=== PATIENT | female | born 1940 | race Caucasian/White ===

== ENCOUNTER 2022-06-23 10:18 | Day surgery (SDC) | payer MEDICARE, OTHER, SELFPAY ==
[2022-06-23 10:30] VITALS: BP 171/94; PULSE 79; RESP 18; TEMP 36.7; O2SAT 96
[2022-06-23] MEDS: Tropicam./Phenyleph. (1/2.5%) 5 ML BTL OS ×3 (10:33→10:52)
--- NOTE | 2022-06-23 11:11 | W.ANESPRE ---
General Info Date of Service Date Performed: 06/23/22 Height: 5 ft 4 in Weight: 75.9 kg Body Mass Index (BMI): 28.7 Surgical Procedure: Operation Date: 06/23/22 13:40 Proposed Procedure Side Surgeon p Cataract Extraction with IOL Implant Left Meqluiades Weldon MD Meds Allergies and Home Medications Allergies Allergy/AdvReac Type Severity Reaction Status Date / Time levofloxacin [From Levaquin] Allergy Severe Anaphylaxis Verified 06/23/22 10:35 pepper (genus Capsicum) Allergy Severe Anaphylaxis Verified 06/23/22 10:35 cefpodoxime Allergy Intermediate hives, Verified 06/23/22 10:35 wheal latex Allergy Intermediate Hives Verified 06/23/22 10:35 pneumococcal vaccine Allergy Intermediate Skin Rash Verified 06/23/22 10:35 Sulfa (Sulfonamide Allergy Intermediate severe Verified 06/23/22 10:35 Antibiotics) stomach problems vaccine adjuvant system, Allergy Intermediate Skin Rash Verified 06/23/22 10:35 AS01B liposomal [From Shingrix ()] varicella-zoster virus Allergy Intermediate Skin Rash Verified 06/23/22 10:35 glycoprotein E, recombinant [From DogSpot (PF)] Home Medication Medication Instructions Recorded calcium carbonate 600 mg calcium 600 mg PO DAILY 06/22/22 (1,500 mg) tablet (Calcium) cetirizine 10 mg capsule (Zyrtec) 10 mg PO DAILY PRN 06/22/22 flecainide 50 mg tablet 50 mg PO DAILY 06/22/22 fluticasone fur. 100 mcg-umeclid 1 inh inhalation DAILY 06/22/22 62.5 mcg-vilant 25 mcg inhalat.powder (Trelegy Ellipta) furosemide 20 mg tablet 20 mg PO DAILY 06/22/22 ipratropium 0.5 mg-albuterol 3 mg 3 ml inhalation QID 06/22/22 (2.5 mg base)/3 mL nebulization soln metoprolol tartrate 25 mg tablet 25 mg PO BID 06/22/22 olopatadine 0.2 % eye drops drp ophthalmic (eye) 06/22/22 potassium chloride 10 mEq 10 meq PO DAILY 06/22/22 tablet,extended release rivaroxaban 20 mg tablet (Xarelto) 20 mg PO DAILY 06/22/22 tiotropium bromide 1.25 2 puff inhalation DAILY 06/22/22 mcg/actuation mist for inhalation (Spiriva Respimat) vitamin B complex-folic acid ER 1 tab PO DAILY 06/22/22 400 mcg tablet,extended release Current Visit Medications: Current Medications Generic Name Dose Route Start Last Admin Trade Name Freq PRN Reason Stop Dose Admin Acetaminophen 1,000 mg 06/23/22 06:00 Acetaminophen 500 Mg Tab PO Q4H PRN PRN Miscellaneous Medication 0 ml 06/23/22 06:00 06/23/22 10:52 Tropicam./Phenyleph. (1/2.5%) 5 Ml Btl OS 1 drp DIRECTED MATI Administration Polymyxin/Trimethoprim Sulfate 10 ml 06/23/22 09:00 Polymyxin B/Trimethoprim Ophth Soln 10 Ml Btl OS 06/30/22 08:59 DIRECTED MATI Prednisolone Acetate 5 ml 06/23/22 09:00 Prednisolone 1% 5 Ml Btl OS 06/30/22 08:59 DIRECTED MATI Tetracaine HCl 0 ml 06/23/22 06:00 Tetracaine 0.5% 4 Ml Btl OS DIRECTED MATI PFSH Active Problems Active Problems: Problem Status Onset Code Cortical cataract of right eye H26.9 Nuclear sclerotic cataract of left eye H25.12 Medical History Medical History Atrial fibrillation Paroxysmal AFib Bronchiectasis Cataract Chronic hypoxemic respiratory failure Chronic pain COPD (chronic obstructive pulmonary disease) Cough Dysphagia GERD (gastroesophageal reflux disease) History of malignant neoplasm Hypertension Pneumonia with intubation during hospitalization. 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 Chronic O2 use. Surgical History Surgical History History of esophagogastroduodenoscopy (EGD) History of partial hysterectomy Tobacco Smoking/Tobacco Use Status: Former Tobacco Use Alcohol Alcohol Intake: never Substance Use Substance use: Never Substance use type: does not use Vital Signs and Lab Results Vital Signs Most Recent Vital Signs in EMR: Most Recent Vital Signs Temp Pulse Resp BP Pulse Ox 36.7 C 79 18 171/94 H 96 06/23/22 10:30 06/23/22 10:30 06/23/22 10:30 06/23/22 10:30 06/23/22 10:30 Lab Results Blood Type / Crossmatch: No Data to Display Complete Blood Count: No Data to Display Complete Metabolic Panel: No Data to Display Liver Function Panel: No Data to Display Coagulation Panel: No Data to Display Cardiac Panel: No Data to Display Arterial Blood Gas: No Data to Display Venous Blood Gas: No Data to Display Pancreas Panel: No Data to Display Thyroid Panel: No Data to Display Infectious Disease: No Data to Display Blood Cultures: No Data to Display Toxicology Panel: No Data to Display Anesthesia Assessment and Plan Anesthesia History Personal History: No History of Anesthesia Complications Family History: No Family History of Anesthesia Complications Exercise Tolerance Exercise Tolerance: Metabolic Equivalents<4 Pertinent Negatives Pertinent Negatives: No Symptoms of GERD, No Major Cardiovascular Symptoms or Complaints and No History of CVA/TIA Cardiac & Pulmonary Exam Cardiac Exam: Normal S1/S2 Heart Sounds Pulmonary Exam: Clear Bilateral Breath Sounds Implantable Cardiac Device Does patient have a Pacemaker or an ICD?: No Airway Exam Known Difficult Airway: No Mallampati Class: 1 Mouth Opening: Normal (> 3cm) Thyromental Distance: Greater than 3 cm Neck Range of Motion: Full ROM Neck Circumference: Normal Teeth Condition: Removable Dentures/Plates Upper ASA Classification ASA Score: ASA 4 Emergency Case?: No NPO Status NPO Status: NPO Clears >2 hours, Solids >8 hours Anesthesia Plan Resuscitation Status: Full Code Anesthesia Technique: MAC Anesthesia Airway Planned: Natural Airway Monitors Used: Standard Monitors
[2022-06-23 11:13] VITALS: BMI 28.7
[2022-06-23] MEDS: Povidone-Iodine Ophth 30 ML BTL (11:43)
[2022-06-23] MEDS: Tetracaine 0.5% 4 ML BTL OS (11:44)
[2022-06-23] MEDS: Lidocaine 2% Jelly 6 ML SYR (11:44)
[2022-06-23] MEDS: Balanced Salt Soln.-PLUS 500 ML BAG (11:52)
[2022-06-23] MEDS: Duovisc Viscoelastic System EACH 1 EACH (11:53)
[2022-06-23] MEDS: Trypan Blue 0.06% 0.5 ML SYR (12:00)
[2022-06-23] MEDS: Polymyxin B/Trimethoprim Ophth Soln 10 ML BTL OS (12:06)
[2022-06-23 12:13] VITALS: BP 208/92; PULSE 86; RESP 16; TEMP 36.6; O2SAT 98
--- NOTE | 2022-06-23 12:15 | W.PM.DSUDISC ---
Date of service: 06/23/22 Time of Service: 12:15 Discharge Plan Disposition Patient Disposition: HOME Condition: Good Discharge Details Reason For Visit: Cataract Attending Provider: Melquiades Weldon Primary Care Provider: Hernando Gleason Home Meds and New Rx's Prescriptions: No Action potassium chloride 10 mEq Tablet Extended Release 10 meq PO DAILY flecainide 50 mg Tablet 50 mg PO DAILY furosemide 20 mg Tablet 20 mg PO DAILY metoprolol tartrate 25 mg Tablet 25 mg PO BID vitamin B complex-folic acid [B100 Complex-Folic Acid] 400 mcg Tablet Extended Release 1 tab PO DAILY Xarelto 20 mg Tablet 20 mg PO DAILY Rx Instructions: must administer with evening meal ipratropium-albuterol 0.5 mg-3 mg(2.5 mg base)/3 mL Solution For Nebulization 3 ml INHALATION QID calcium carbonate [Calcium 600] 600 mg calcium (1,500 mg) Tablet 600 mg PO DAILY olopatadine [Pataday] 0.2 % Drops OPHTHALMIC (EYE) Zyrtec 10 mg Capsule 10 mg PO DAILY PRN Spiriva Respimat 1.25 mcg/actuation Mist 2 puff INHALATION DAILY Trelegy Ellipta 100-62.5-25 mcg Blister With Device 1 inh INHALATION DAILY Discharge Instructions Stand Alone Forms: Post-op Topical Cataract, Santa Mack (DSU) Discharge Orders Discharge Orders: Discharge Order (Routine); Ordered 06/23/22 Ordered By: Melquiades Weldon DS: Diagnosis Discharge Diagnosis (1) Nuclear sclerotic cataract of left eye: Status: Resolved (2) Cortical cataract of left eye: Status: Resolved (3) Posterior subcapsular age-related cataract of left eye: Status: Resolved
--- NOTE | 2022-06-23 12:17 | ROE_ITS ---
Date of service: 06/23/22 Time of Service: 12:17 Operative Note Operative Note DATE OF PROCEDURE: 06/23/22 PRE-OP DIAGNOSIS: Nuclear/cortical/posterior subcapsular cataract, left eye Poor red reflex, left eye secondary to cataract POST-OP DIAGNOSIS: same PROCEDURE: Cataract extraction using phacoemulsification with intraocular lens implant, left eye, using capsular staining with Vision Blue SURGEON: Melquiades Weldon ANESTHESIA TYPE: Local By Surgeon and MAC Refer to Anesthesia Record COMPLICATIONS: None Patient was transported to: same day Patient's condition: stable Implants: Jesus Alberto and Jesus Alberto / [employer] Tecnis [id number] Indications: Progressive decreased vision due to cataract, left eye, with poor red reflex Procedure Description: CATARACT SURGERY OPERATIVE REPORT PREOPERATIVE DIAGNOSIS: 1. Nuclear/cortical/posterior subcapsular cataract, left eye 2. Poor red reflex secondary to #1 POSTOPERATIVE DIAGNOSIS: Same OPERATION: 1. Cataract extraction using phacoemulsification with posterior chamber intraocular lens implant, left eye. 2. Capsular staining with Vision Blue IOL: IOL Insurance Verification Specialist/Model: Jesus Alberto & Jesus Alberto / CASI Tecnis [id number] IOL Power: + 23.5 diopters IOL Serial Number: [id number] Optic Diameter: 6.0 mm Haptic/Overall Diameter: 13.0 mm PHACO INFO: Jayson [employer]ion Vision System with OZil and Active Fluidics Cumulative Dispersed Energy (CDE): 12.11 seconds SURGEON: Melquiades Weldon MD, BERENICE ANESTHESIA: Monitored A [facility] (MAC), with local sub-tenon's anesthetic infiltration COMPLICATIONS: None SPECIMENS: None INDICATIONS FOR PROCEDURE: The patient is an 81-year-old lady with history of diminished visual acuity in her left eye secondary to the development of nuclear/cortical/posterior subcapsular cataract in the left eye. She is significantly symptomatic that she desires cataract surgery attempt to improve and maximize her vision. The option of cataract surgery was offered to the patient and she wished to proceed. PROCEDURE: The correct surgical eye was identified and marked as the left eye and the pupil was dilated in the preoperative area using mydriatics and cycloplegics. The dilated pupil size was 7.0 mm. The patient elected to proceed without oral sedation. The patient was brought to the operating room where cardiopulmonary monitoring was instituted and surgical time-out was performed, confirming the correct operative eye and IOL power. Positioning was challenging due to patient factors. Topical anesthesia was administered and ophthalmic povidone-iodine 5% was instilled into the conjunctival fornices. Lidocaine gel was applied to the cornea and the marco-ocular area was prepped with Betadine 10% solution and draped in the usual sterile fashion for intraocular surgery, including an aperture drape. A Tegaderm transparent film dressing was cut in half and used to cover the lashes and lid margins. Care was taken to sequester the lashes and lid margins under the Tegaderm dressing. A lid speculum was placed between the lids of the operative eye and the Jayson LuxOR Revalia operating microscope was maneuvered into position. Lorie scissors were then used to make a conjunctival buttonhole approximately 6mm posterior to the limbus in the inferonasal quadrant. Blunt dissection was carried out to expose bare sclera, and a blunt-tipped sub-tenon?s anesthesia cannula was introduced and passed posteriorly along the globe where non- preserved plain lidocaine was injected into posterior sub-Tenon?s space. A sideport knife was used to make a paracentesis port superiorly/superiortemporally. Intraocular phenylephrine/lidocaine was injected int the anterior chamber.. Air was then injected into the anterior chamber, followed by Vision Blue, which was painted over the anterior capsule and then irrigated out using BSS. The anterior chamber was filled with viscoelastic. A keratome knife was used to create a 2-plane near clear corneal tunnel extending approximately 2 mm into clear cornea temporally. A flap was raised on the anterior capsule and capsulorhexis forceps were used to complete a continuous curvilinear capsulorhexis of 5.0 mm. Balanced salt solution was then used to perform cortical cleaving hydrodissection and nuclear hydrodelineation until the lens could be freely rotated within the capsular bag. The lens nucleus was then disassembled and removed within the capsular bag and iris plane using phacoemulsification. Residual cortical material was removed using the 45-degree angled silicone I/A tip with 0.3mm port. The posterior capsule was carefully polished to remove as much residual lens epithelial cells as safely possible. The capsular bag was then inflated and the anterior chamber deepened with viscoelastic. The lens implant described above was inserted into the capsular bag using the CASI Pl atinum Injector. A Kuglen hook was used to dial the IOL into position. Residual viscoelastic was then removed first from posterior to the IOL, then from the anterior chamber using the I/A handpiece. The lens implant was noted to center nicely within the capsular bag. The incisions were stromally hydrated, and the anterior chamber was reformed using BSS. Then 0.5cc of moxifloxacin 1.0mg/ml were injected into the capsular bag and anterior chamber. The incisions were checked with a Weck spear and found to be secure. Several drops of ophthalmic povidone-iodine 5% were then applied to the eye followed by two drops of Imprimis combination prednisolone/moxifloxacin/nepafenac solution. The drapes were removed and a clear plastic protective eye shield was placed over the eye. The patient was then returned to Same Day Surgery in stable condition.
--- NOTE | 2022-06-23 12:39 | W.ANESPOSTOP ---
Postoperative Evaluation Date, Time and Location Date Performed: 06/23/22 Time Performed: 12:20 Patient Location: Day Surgery Unit Vital Signs Most Recent Imported Vital Signs: Most Recent Vital Signs Temp Pulse Resp BP Pulse Ox 36.6 C 86 16 208/92 H 98 06/23/22 12:13 06/23/22 12:13 06/23/22 12:13 06/23/22 12:13 06/23/22 12:13 Pain Score Most Recent Pain Score: Most Recent Pain Score Pain Level 0 06/23/22 12:13 Assessment Mental Status: Awake (Alert & Oriented to Patient Baseline) Airway and Respiratory Function: Patent airway with normal (patient baseline) respiratory exam Cardiovascular Function: Hemodynamically Stable Hydration Status: Adequately Hydrated Nausea & Vomiting: No Nausea or Vomiting Pain: Pt. Denies Any Pain Peripheral Nerve Block: Patient did not receive a nerve block
[2022-06-23 12:54] VITALS: BP 168/83; PULSE 82; TEMP 36.2; O2SAT 97
== END 2022-06-23 13:08 | disposition home or self-care (01) ==
PROVIDERS: PCP Family Medicine; Visit Provider Ophthalmology
PROC: (CPT 66982; principal; 2022-06-23 13:30)
DX: H25.042 Posterior subcapsular polar age-related cataract, left eye (principal); H26.8 Other specified cataract
CPT/HCPCS: 66982; V2632

== ENCOUNTER 2022-07-07 06:16 | Day surgery (SDC) | payer MEDICARE, OTHER, SELFPAY ==
[2022-07-07] MEDS: Tropicam./Phenyleph. (1/2.5%) 5 ML BTL OD ×3 (06:35→06:52)
[2022-07-07 06:46] VITALS: BP 173/85; PULSE 75; RESP 20; TEMP 37; O2SAT 95
--- NOTE | 2022-07-07 06:52 | ANES.PREOP_ITS ---
General Info Date of Service Date Performed: 07/07/22 Height: 5 ft 4.5 in Weight: 73.482 kg Body Mass Index (BMI): 27.3 Surgical Procedure: Operation Date: 07/07/22 07:40 Proposed Procedure Side Surgeon p Cataract Extraction with IOL Implant Right Melquiades Weldon MD Meds Allergies and Home Medications Allergies Allergy/AdvReac Type Severity Reaction Status Date / Time levofloxacin [From Levaquin] Allergy Severe Anaphylaxis Verified 07/07/22 06:39 pepper (genus Capsicum) Allergy Severe Anaphylaxis Verified 07/07/22 06:39 cefpodoxime Allergy Intermediate hives, Verified 07/07/22 06:39 wheal latex Allergy Intermediate Hives Verified 07/07/22 06:39 pneumococcal vaccine Allergy Intermediate Skin Rash Verified 07/07/22 06:39 Sulfa (Sulfonamide Allergy Intermediate severe Verified 07/07/22 06:39 Antibiotics) stomach problems vaccine adjuvant system, Allergy Intermediate Skin Rash Verified 07/07/22 06:39 AS01B liposomal [From Simple Tithe ()] varicella-zoster virus Allergy Intermediate Skin Rash Verified 07/07/22 06:39 glycoprotein E, recombinant [From Simple Tithe (PF)] Home Medication Medication Instructions Recorded calcium carbonate 600 mg calcium 600 mg PO DAILY 06/22/22 (1,500 mg) tablet (Calcium) cetirizine 10 mg capsule (Zyrtec) 10 mg PO HS 06/22/22 flecainide 50 mg tablet 50 mg PO DAILY 06/22/22 furosemide 20 mg tablet 20 mg PO DAILY 06/22/22 ipratropium 0.5 mg-albuterol 3 mg 3 ml inhalation QID 06/22/22 (2.5 mg base)/3 mL nebulization soln metoprolol tartrate 25 mg tablet 25 mg PO BID 06/22/22 olopatadine 0.2 % eye drops 1 drp ophthalmic (eye) DAILY 06/22/22 potassium chloride 10 mEq 10 meq PO HS 06/22/22 tablet,extended release rivaroxaban 20 mg tablet (Xarelto) 20 mg PO DAILY 06/22/22 tiotropium bromide 1.25 2 puff inhalation DAILY 06/22/22 mcg/actuation mist for inhalation (Spiriva Respimat) vitamin B complex-folic acid ER 1 tab PO DAILY 06/22/22 400 mcg tablet,extended release Current Visit Medications: Current Medications Generic Name Dose Route Start Last Admin Trade Name Freq PRN Reason Stop Dose Admin Acetaminophen 1,000 mg 07/07/22 06:00 Acetaminophen 500 Mg Tab PO Q4H PRN PRN Miscellaneous Medication 0 ml 07/07/22 06:00 07/07/22 06:43 Tropicam./Phenyleph. (1/2.5%) 5 Ml Btl OD 1 drp DIRECTED MATI Administration Tetracaine HCl 0 ml 07/07/22 06:00 Tetracaine 0.5% 4 Ml Btl OD DIRECTED MATI PFSH Active Problems Active Problems: Problem Status Onset Code Nuclear sclerotic cataract of left eye H25.12 Cortical cataract of right eye H26.9 Cortical cataract of left eye H26.9 Posterior subcapsular age-related cataract of left eye H25.042 Nuclear sclerotic cataract of right eye H25.11 Medical History Medical History Atrial fibrillation Paroxysmal AFib Bronchiectasis Cataract Chronic hypoxemic respiratory failure Chronic pain COPD (chronic obstructive pulmonary disease) Cough Dysphagia GERD (gastroesophageal reflux disease) History of malignant neoplasm Hypertension Pneumonia with intubation during hospitalization. 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 Surgical History Surgical History (Updated 07/07/22 @ 06:38 by Nicole Shannon) History of esophagogastroduodenoscopy (EGD) History of partial hysterectomy Hx of cataract extraction Tobacco Smoking/Tobacco Use Status: Former Tobacco Use Alcohol Alcohol Intake: never Substance Use Substance use: Never Substance use type: does not use Vital Signs and Lab Results Vital Signs Most Recent Vital Signs in EMR: Temp Pulse Resp BP Pulse Ox 37 C 75 20 173/85 H 95 07/07/22 06:46 07/07/22 06:46 07/07/22 06:46 07/07/22 06:46 07/07/22 06:46 Lab Results Blood Type / Crossmatch: No Data to Display Complete Blood Count: No Data to Display Complete Metabolic Panel: No Data to Display Liver Function Panel: No Data to Display Coagulation Panel: No Data to Display Cardiac Panel: No Data to Display Arterial Blood Gas: No Data to Display Venous Blood Gas: No Data to Display Pancreas Panel: No Data to Display Thyroid Panel: No Data to Display Infectious Disease: No Data to Display Blood Cultures: No Data to Display Toxicology Panel: No Data to Display Anesthesia Assessment and Plan Anesthesia History Personal History: No History of Anesthesia Complications Family History: No Family History of Anesthesia Complications Exercise Tolerance Exercise Tolerance: Metabolic Equivalents<4 Pertinent Negatives Pertinent Negatives: No Symptoms of GERD Cardiac & Pulmonary Exam Cardiac Exam: Normal S1/S2 Heart Sounds Pulmonary Exam: Clear Bilateral Breath Sounds (Distant) Implantable Cardiac Device Does patient have a Pacemaker or an ICD?: No Airway Exam Known Difficult Airway: No Mallampati Class: 1 Mouth Opening: Normal (> 3cm) Thyromental Distance: Greater than 3 cm Neck Range of Motion: Full ROM Neck Circumference: Normal Teeth Condition: Removable Dentures/Plates Upper ASA Classification ASA Score: ASA 3 Emergency Case?: No NPO Status NPO Status: NPO Clears >2 hours, Solids >8 hours Anesthesia Plan Resuscitation Status: Full Code Anesthesia Technique: MAC Anesthesia Airway Planned: Natural Airway Monitors Used: Standard Monitors Preoperative Comments:: O mko as before.
[2022-07-07 06:54] VITALS: BMI 27.3
[2022-07-07] MEDS: Povidone-Iodine Ophth 30 ML BTL (07:26)
[2022-07-07] MEDS: Tetracaine 0.5% 4 ML BTL OD (07:26)
[2022-07-07] MEDS: Lidocaine 2% Jelly 6 ML SYR (07:27)
[2022-07-07] MEDS: Duovisc Viscoelastic System EACH 1 EACH (07:35)
[2022-07-07] MEDS: Balanced Salt Soln.-PLUS 500 ML BAG (07:35)
[2022-07-07] MEDS: Trypan Blue 0.06% 0.5 ML SYR (07:40)
[2022-07-07] MEDS: Polymyxin B/Trimethoprim Ophth Soln 10 ML BTL OS (07:53)
[2022-07-07 08:01] VITALS: BP 190/89; PULSE 81; RESP 16; TEMP 36.6; O2SAT 97
--- NOTE | 2022-07-07 08:01 | W.PM.DSUDISC ---
Date of service: 07/07/22 Time of Service: 08:01 Discharge Plan Disposition Patient Disposition: HOME Condition: Good Discharge Details Attending Provider: Melquiades Weldon Primary Care Provider: Hernando Gleason Home Meds and New Rx's Prescriptions: No Action potassium chloride 10 mEq Tablet Extended Release 10 meq PO HS flecainide 50 mg Tablet 50 mg PO DAILY furosemide 20 mg Tablet 20 mg PO DAILY metoprolol tartrate 25 mg Tablet 25 mg PO BID vitamin B complex-folic acid [B100 Complex-Folic Acid] 400 mcg Tablet Extended Release 1 tab PO DAILY Xarelto 20 mg Tablet 20 mg PO DAILY Rx Instructions: must administer with evening meal ipratropium-albuterol 0.5 mg-3 mg(2.5 mg base)/3 mL Solution For Nebulization 3 ml INHALATION QID calcium carbonate [Calcium 600] 600 mg calcium (1,500 mg) Tablet 600 mg PO DAILY olopatadine [Pataday] 0.2 % Drops 1 drp OPHTHALMIC (EYE) DAILY Zyrtec 10 mg Capsule 10 mg PO HS Spiriva Respimat 1.25 mcg/actuation Mist 2 puff INHALATION DAILY Discharge Instructions Stand Alone Forms: Post-op Topical Cataract, [place] Mack (DSU) DS: Diagnosis Discharge Diagnosis (1) Cortical cataract of right eye: Status: Resolved (2) Nuclear sclerotic cataract of right eye: Status: Resolved
--- NOTE | 2022-07-07 08:05 | ROE_ITS ---
Date of service: 07/07/22 Time of Service: 08:05 Operative Note Operative Note DATE OF PROCEDURE: 07/07/22 PRE-OP DIAGNOSIS: Nuclear/cortical cataract, right eye POST-OP DIAGNOSIS: same PROCEDURE: Cataract extraction using phacoemulsification with intraocular lens implantation, right eye, using capsular staining with Vision Blue SURGEON: Melquiades Weldon ANESTHESIA TYPE: Local By Surgeon and MAC Refer to Anesthesia Record PATHOLOGY: none sent COMPLICATIONS: None Patient was transported to: same day Patient's condition: stable Implants: Jesus Alberto and Jesus [employer] / [employer] Tecnis [id number] Indications: Progressive visual loss due to cataract, right eye Procedure Description: CATARACT SURGERY OPERATIVE REPORT PREOPERATIVE DIAGNOSIS: 1. Nuclear/cortical cataract, right eye 2. Poor red reflex secondary to #1 POSTOPERATIVE DIAGNOSIS: Same OPERATION: 1. Cataract extraction using phacoemulsification with posterior chamber intraocular lens implant, right eye. 2. Capsular staining with Vision Blue IOL: IOL Skin Installer/Model: Jesus Alberto & Jesus Alberto / CASI Tecnis [id number] IOL Power: + 23.5 diopters IOL Serial Number: [id number] Optic Diameter: 6.0mm Haptic/Overall Diameter: 13.0mm PHACO INFO: Jayson W[employer]ur[employer] Vision System with OZil and Active [employer]uidics Cumulative Dispersed Energy (CDE): 13.36 seconds SURGEON: Melquiades Weldon MD, BERENICE ANESTHESIA: Monitored Anesthesia Care (MAC), with local sub-tenon's anesthetic infiltration COMPLICATIONS: None SPECIMENS: None INDICATIONS FOR PROCEDURE: The patient is an 81-year-old lady with history of 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 She has already undergone cataract surgery in the left eye and is doing well postoperatively. She now presents for cataract surgery in the right eye. PROCEDURE: The correct surgical eye was identified and marked as the right eye and the pupil was dilated in the preoperative area using mydriatics and cycloplegics. The dilated pupil size was 7.0 mm. The patient elected to proceed without oral sedation. The patient was brought to the operating room where cardiopulmonary monitoring was instituted and surgical time-out was performed, confirming the correct operative eye and IOL power. Topical anesthesia was administered and ophthalmic povidone-iodine 5% was instilled into the conjunctival fornices. Lidocaine gel was applied to the cornea and the marco-ocular area was prepped with Betadine 10% solution and draped in the usual sterile fashion for intraocular surgery, including an aperture drape. A Tegaderm transparent film dressing was cut in half and used to cover the lashes and lid margins. Care was taken to sequester the lashes and lid margins under the Tegaderm dressing. A lid speculum was placed between the lids of the operative eye and the Jayson [employer] Revalia operating microscope was maneuvered into position. Lorie scissors were then used to make a conjunctival buttonhole approximately 6mm posterior to the limbus in the inferonasal quadrant. Blunt dissection was carried out to expose bare sclera, and a blunt-tipped sub-tenon?s anesthesia cannula was introduced and passed posteriorly along the globe where non- preserved plain lidocaine was injected into posterior sub-Tenon?s space. A sideport knife was used to make a paracentesis port inferotemporally. Intraocular phenylephrine/lidocaine was injected into the anterior chamber. Air was injected into the anterior chamber, followed by Vision Blue, which was painted over the anterior capsule and then irrigated out with BSS. The anterior chamber was filled with viscoelastic. A keratome knife was used to create a 2- plane near clear corneal tunnel extending approximately 2 mm into clear cornea superior temporally.. A flap was raised on the anterior capsule and capsulorhexis forceps were used to complete a continuous curvilinear capsulorhexis of 5.5 mm. Balanced salt solution was then used to perform cortical cleaving hydrodissection and nuclear hydrodelineation until the lens could be freely rotated within the capsular bag. The lens nucleus was then disassembled and removed within the capsular bag and iris plane using phacoemulsification. Residual cortical material was removed using the I/A handpiece. The posterior capsule was carefully polished to remove as much residual lens epithelial cells as safely possible. The capsular bag was then inflated and the anterior chamber deepened with viscoelastic. The lens implant described above was inserted into the capsular bag using the CAS[employer] [place] [employer] [place] Injector. A Kuglen hook was used to dial the IOL into position. Residual viscoelastic was then removed first from posterior to the IOL, then from the anterior chamber using the I/A handpiece. The lens implant was noted to center nicely within the capsular bag. The incisions were stromally hydrated, and the anterior chamber was reformed using BSS. The incisions were checked with a Weck spear and found to be secure. Several drops of ophthalmic povidone- iodine 5% were then applied to the eye followed by two drops of Polytrim and prednisolone acetate. The drapes were removed and a clear plastic protective eye shield was placed over the eye. The patient was then returned to Same Day Surgery in stable condition.
--- NOTE | 2022-07-07 08:09 | W.ANESPOSTOP ---
Postoperative Evaluation Date, Time and Location Date Performed: 07/07/22 Time Performed: 08:10 Patient Location: Day Surgery Unit Vital Signs Most Recent Imported Vital Signs: Most Recent Vital Signs Temp Pulse Resp BP Pulse Ox 36.6 C 81 16 190/89 H 97 07/07/22 08:01 07/07/22 08:01 07/07/22 08:01 07/07/22 08:01 07/07/22 08:01 Pain Score Most Recent Pain Score: Most Recent Pain Score Pain Level 0 07/07/22 08:01 Assessment Mental Status: Awake (Alert & Oriented to Patient Baseline) Airway and Respiratory Function: Patent airway with normal (patient baseline) respiratory exam Cardiovascular Function: Hemodynamically Stable Hydration Status: Adequately Hydrated Nausea & Vomiting: No Nausea or Vomiting Pain: Pt. Denies Any Pain Peripheral Nerve Block: Patient did not receive a nerve block
== END 2022-07-07 08:27 | disposition home or self-care (01) ==
PROVIDERS: PCP Family Medicine; Visit Provider Ophthalmology
PROC: (CPT 66982; principal; 2022-07-07 07:30)
DX: H25.11 Age-related nuclear cataract, right eye (principal); H26.8 Other specified cataract
CPT/HCPCS: 66982; V2632